=== PATIENT | female | born 1965 | race Caucasian/White ===

== ENCOUNTER 2017-06-19 06:19 | Day surgery (SDC) | payer OTHER ==
[~2017-06-19] VITALS: Ht 160 cm; Wt 59.5 kg
[~2017-06-19 06:19] MED LIST: CeFAZolin 1 GM/DEXTROSE 50 ML IV ONE; LORazepam 2 MG/ML VIAL IVP PRN; SODIUM CHLORIDE 0.9% 1,000 ML IV ONE
[2017-06-19] MEDS ORDERED: SODIUM CHLORIDE 0.9% 1,000 ML IV ONE (06:20)
[2017-06-19] MEDS ORDERED: CeFAZolin 1 GM/DEXTROSE 50 ML IV ONE (06:21)
[2017-06-19 07:15] LABS: BASOPHILS # (AUTO) 0.08 K/uL (0.00-0.20); BASOPHILS % (AUTO) 1.5 % (0.0-2.0); EOSINOPHILS # (AUTO) 0.06 K/uL (0.00-0.70); EOSINOPHILS % (AUTO) 1.19 % (1.0-6.0); HEMATOCRIT 43.1 % (36-46); HEMOGLOBIN 14.1 g/dL (12.0-16.0); LYMPHOCYTES # (AUTO) 2.1 K/uL (1.0-4.8); LYMPHOCYTES % (AUTO) 38.3 % (22.0-44.0); MEAN CORPUSCULAR HEMOGLOBIN 29.1 pg (26.0-34.0); MEAN CORPUSCULAR HGB CONC 32.8 G/dL (31.0-37.0); MEAN CORPUSCULAR VOLUME 89 fL (80-100); MONOCYTES # (AUTO) 0.4 K/uL (0.1-1.0); MONOCYTES % (AUTO) 7.5 % (2.0-9.0); NEUTROPHILS # (AUTO) 2.8 K/uL (1.8-7.7); NEUTROPHILS % (AUTO) 51.6 % (40.0-70.0); PLATELET COUNT (AUTO) 259 K/uL (150-450); RED BLOOD CELL COUNT(AUTO) 4.86 MIL/uL (4.00-5.20); RED CELL DISTRIBUTION WIDTH 13.1 % (11.5-14.5); WHITE BLOOD COUNT (AUTO) 5.4 K/uL (4.5-11.0)
[2017-06-19] MEDS ORDERED: FentaNYL CITRATE-PF 100 MCG/2 ML VIAL ONE ×3 (07:37→11:57)
[2017-06-19] MEDS ORDERED: MIDAZOLAM HCL 2 MG/2 ML VIAL ONE ×3 (07:37→11:57)
[2017-06-19] MEDS ORDERED: LIDOCAINE HCL/PF 1% 30 ML VIAL ONE ×3 (07:38→11:04)
[2017-06-19] MEDS ORDERED: FentaNYL CITRATE-PF 100 MCG/2 ML VIAL IVP ONE ×4 (08:44→12:15)
[2017-06-19] MEDS ORDERED: MIDAZOLAM HCL 2 MG/2 ML VIAL IVP ONE ×4 (09:10→12:15)
[2017-06-19] MEDS ORDERED: SODIUM BICARBONATE 50 MEQ/50 ML VIAL ONE (11:04)
[2017-06-19 11:10] VITALS: BP 122/62
[2017-06-19 12:17] VITALS: BP 131/55
[2017-06-19] MEDS ORDERED: HYDROmorphone 2 MG/ML SYRINGE IM ONE (12:30)
[2017-06-19] MEDS ORDERED: HYDROmorphone 2 MG/ML SYRINGE ONE (12:33)
== END 2017-06-19 13:00 | disposition home or self-care (01) ==
LOC: SURGERY 06:19 → EDSTATUS 08:00 → SURGERY 13:00
PROVIDERS: ATTEND Radiology Diagnostic Radiology
DX: D05.01 Lobular carcinoma in situ of right breast (principal); Z80.3 Family history of malignant neoplasm of breast; Z98.890 Other specified postprocedural states
CPT/HCPCS: 19105; 36415; 85025; C2618; J0690; J1170; J2250; J3010; J3490 ×2; J7030; 99152; 99153